=== PATIENT | female | born 1930 | race Caucasian/White ===

== ENCOUNTER 2016-12-01 19:15 | Emergency (ER) | payer MEDICARE ==
[~2016-12-01] VITALS: Ht 162.6 cm; Wt 70.5 kg
[~2016-12-01 19:15] MED LIST: ACET325S8 PO; ANTI12.5 PO; CERTTAB2; CORTIS10A AS; CYAN1LOZ SL; DONE10TA14 PO; FLUO10CA4; MECL12.574 PO; MECL25 PO; NAME10TA PO; RISP1TAB2 PO; ZITH250T PO
[2016-12-01] MEDS ORDERED: SODIUM CHLORIDE 0.9% FLUSH 5 ML FLUSH IVF PRN (19:30)
[2016-12-01] MEDS ORDERED: SODIUM CHLORID 0.9% 500 ML INJ 500 ML IV ONE (19:30)
[2016-12-01 19:31] VITALS: BP 164/56; PULSE 83; RESP 18; TEMP 97.7; O2SAT 97
--- NOTE | 2016-12-01 19:40 | RADHPO ---
EXAM DATE/TIME: 12/01/2016 19:35 [facility] COMPARISON: CHEST SINGLE AP, September 21, 2013, 12:40. INDICATIONS : Weakness, syncopal episode today MEDICAL HISTORY : Unobtainable SURGICAL HISTORY : Unobtainable ENCOUNTER: Initial ACUITY: 1 day PAIN SCORE: Non-responsive. LOCATION: Bilateral chest FINDINGS: A single view of the chest demonstrates the lungs to be symmetrically aerated without evidence of mas s, infiltrate or effusion. The cardiomediastinal contours are unremarkable. Osseous structures are intact. CONCLUSION: No acute disease. Gael Shukla MD on December 01, 2016 at 19:39 Board Certified Radiologist. This report was verified electronically.
[2016-12-01] MEDS ORDERED: VITA500T49 PO (19:48)
[2016-12-01] MEDS ORDERED: FLUO10CA5 PO (19:48)
[2016-12-01] MEDS ORDERED: CERTTAB2 PO (19:48)
[2016-12-01] MEDS ORDERED: DONE10TA7 PO (19:48)
[2016-12-01] MEDS ORDERED: MEMA1TAB2 PO (19:48)
[2016-12-01] MEDS ORDERED: RISP1TAB2 PO (19:48)
[2016-12-01] MEDS ORDERED: KETO1DRO3 EACH EYE (19:48)
[2016-12-01] MEDS ORDERED: AMMO12CR4 TOP (19:48)
--- NOTE | 2016-12-01 19:52 | PD ---
HPI Chief Complaint: General Weakness Time Seen by Provider: 19:27 Travel History International Travel<30 days: No Contact w/Intl Traveler<30days: No Traveled to known affect area: No History of Present Illness HPI Patient is an 85-year-old female with history of dementia who presents to emergency room with complaints of generalized weakness as per [facility] staff. [facility] staff sent patient to the emergency room for evaluation as they reported the patient was sleeping all day and stayed in bed which is unusual for her. Patient is presently demented at bedside, she is alert to person, reports that she feels fine, reports that she has absolutely no complaints. Patient reports that she is not sure why she is in the emergency room at this time. Patient denies any headache or dizziness, denies chest pain or shortness of breath. Patient denies cough, congestion, abdominal pain, nausea or vomiting. Patient with no complaints at this time. PFSH Past Medical History Cardiovascular Problems: Yes COPD: Yes Dementia: Yes Hypertension: Yes Respiratory: Yes ?: Not Past Surgical History Eye Surgery: Yes Social History Alcohol Use: No Tobacco Use: No Substance Use: No Allergies-Medications (Allergen,Severity, Reaction): Coded Allergies: No Known Allergies (Unverified , 12/01/16) Reported Meds & Prescriptions Reported Meds & Active Scripts Active Reported Vitamin B12 (Cyanocobalamin) 500 Mcg Tab 1,000 Mcg PO DAILY Thera Tears Allergy Eye Opth Drops (Ketotifen Opth Drops) 0.025% Drops 1 Drop EACH EYE DAILY PRN Risperidone 1 Mg Tab 1 Mg PO DAILY Memantine 10 Mg Tab 10 Mg PO BID Fluoxetine (Fluoxetine HCl) 10 Mg Cap 10 Mg PO DAILY Donepezil 10 Mg Tab 10 Mg PO HS Certavite/Antioxidants (Multiple Vitamins W/ Minerals) 1 Tab Tab 1 Tab PO DAILY Ammonium Lactate (Lactic Acid) 12 % Cre 1 Applic TOP TID APPLY TO: Review of Systems General / Constitutional: No: Fever Eyes: No: Visual changes HENT: No: Headaches Cardiovascular: No: Chest Pain or Discomfort Respiratory: No: Shortness of Breath Gastrointestinal: No: Abdominal Pain Genitourinary: No: Dysuria Musculoskeletal: No: Pain Skin: No Rash Neurologic: No: Weakness Psychiatric: No: Depression Endocrine: No: Polydipsia Hematologic/Lymphatic: No: Easy Bruising Physical Exam Narrative GENERAL: No acute distress, nontoxic SKIN: Warm and dry. HEAD: Atraumatic. Normocephalic. EYES: Pupils equal and round. No scleral icterus. No injection or drainage. ENT: No nasal bleeding or discharge. Mucous membranes pink and moist. NECK: Trachea midline. No JVD. CARDIOVASCULAR: Regular rate and rhythm. No murmur appreciated. RESPIRATORY: No accessory muscle use. Clear to auscultation. Breath sounds equal bilaterally. GASTROINTESTINAL: Abdomen soft, non-tender, nondistended. Hepatic and splenic margins not palpable. MUSCULOSKELETAL: No obvious deformities. No clubbing. No cyanosis. No edema. NEUROLOGICAL: Awake and alert to person only. No obvious cranial nerve deficits. Motor grossly within normal limits. Normal speech. PSYCHIATRIC: Appropriate mood and affect; patient pleasantly demented Data Data Last Documented VS Vital Signs Date Time Temp Pulse Resp B/P Pulse Ox O2 Delivery O2 Flow Rate FiO2 12/01/16 20:24 82 18 154/67 96 Room Air 12/01/16 19:31 97.7 Orders Complete Blood Count With Diff (12/01/16 19:27) Comprehensive Metabolic Panel (12/01/16 19:27) Prothrombin Time / Inr (Pt) (12/01/16 19:27) Act Partial Throm Time (Ptt) (12/01/16 19:27) Urinalysis - C+S If Indicated (12/01/16 19:27) Iv Access Insert/Monitor (12/01/16 19:27) Ecg Monitoring (12/01/16 19:27) Sodium Chloride 0.9% Flush (Ns Flush) (12/01/16 19:30) Electrocardiogram (12/01/16 19:27) Chest, Single Ap (12/01/16 19:27) Sodium Chlorid 0.9% 500 Ml Inj (Ns 500 M (12/01/16 19:30) Labs Laboratory Tests Test 12/01/16 12/01/16 20:05 20:35 White Blood Count 7.0 TH/MM3 Red Blood Count 4.53 MIL/MM3 Hemoglobin 12.8 GM/DL Hematocrit 38.7 % Mean Corpuscular Volume 85.4 FL Mean Corpuscular Hemoglobin 28.2 PG Mean Corpuscular Hemoglobin 33.0 % Concent Red Cell Distribution Width 12.7 % Platelet Count 254 TH/MM3 Mean Platelet Volume 8.0 FL Neutrophils (%) (Auto) 72.5 % Lymphocytes (%) (Auto) 17.1 % Monocytes (%) (Auto) 7.6 % Eosinophils (%) (Auto) 1.9 % Basophils (%) (Auto) 0.9 % Neutrophils # (Auto) 5.1 TH/MM3 Lymphocytes # (Auto) 1.2 TH/MM3 Monocytes # (Auto) 0.5 TH/MM3 Eosinophils # (Auto) 0.1 TH/MM3 Basophils # (Auto) 0.1 TH/MM3 CBC Comment DIFF FINAL Differential Comment Sodium Level 144 MEQ/L Potassium Level 3.8 MEQ/L Chloride Level 107 MEQ/L Carbon Dioxide Level 31.3 MEQ/L Anion Gap 6 MEQ/L Blood Urea Nitrogen 11 MG/DL Creatinine 0.85 MG/DL Estimat Glomerular Filtration 64 ML/MIN Rate Random Glucose 114 MG/DL Calcium Level 8.7 MG/DL Total Bilirubin 0.2 MG/DL Aspartate Amino Transf 15 U/L (AST/SGOT) Alanine Aminotransferase 25 U/L (ALT/SGPT) Alkaline Phosphatase 91 U/L Total Protein 6.3 GM/DL Albumin 3.1 GM/DL Urine Color YELLOW Urine Turbidity CLEAR Urine pH 7.0 Urine Specific [place] 1.011 Urine Protein NEG mg/dL Urine Glucose (UA) NEG mg/dL Urine Ketones NEG mg/dL Urine Occult Blood NEG Urine Nitrite NEG Urine Bilirubin NEG Urine Leukocyte Esterase NEG Urine RBC 0-3 /hpf Urine WBC 0-2 /hpf Urine Squamous Epithelial 0-5 /hpf Cells Microscopic Urinalysis Comment CULT NOT INDICATED MDM Medical Decision Making Medical Screen Exam Complete: Yes Emergency Medical Condition: Yes Interpretation(s) EKG at 1943: Normal sinus rhythm at 71 bpm, QT/QTc is 378/397, no acute ST or T- wave changes Vital Signs Date Time Temp Pulse Resp B/P Pulse Ox O2 Delivery O2 Flow Rate FiO2 12/01/16 19:31 97.7 83 18 164/56 97 Differential Diagnosis UTI, ACS, electrolyte abnormality, dehydration, infection, dementia Narrative Course Patient is an 85-year-old female with history of dementia who presents to emergency room from [facility] for evaluation of generalized weakness. Patient is alert to person while in the emergency room, patient is pleasantly demented with no complaints. On exam, patient has a benign neurological exam, there is no obvious weakness on her physical exam. Vital signs are stable, plan to obtain labs as well as x-ray of chest and urinalysis. We'll give 500 mg of IV fluids. Plan to monitor patient. Vital Signs Date Time Temp Pulse Resp B/P Pulse Ox O2 Delivery O2 Flow Rate FiO2 12/01/16 20:24 82 18 154/67 96 Room Air 12/01/16 19:51 83 18 97 Room Air 12/01/16 19:31 97.7 83 18 164/56 97 VS stable while in the ER CBC & BMP Diagram 12/01/16 20:05 labs unremarkable UA with no signs of infection, neg leuk esteraste and neg for nitrites Last Impressions Chest X-Ray 12/01/[id number] Signed Impressions: Service Date/Time: Thursday, December 01, 2016 19:35 - CONCLUSION: No acute disease. Gael Shukla MD Patient is well-appearing, smiling and talking at bedside, patient does have baseline dementia. Patient does not appear lethargic while in the emergency room, plan to send her back to the [facility] with instructions to follow-up with her primary care doctor. Patient currently is medically stable for discharge Diagnosis Primary Impression: General weakness Patient Instructions: General Instructions Additional Instructions: Please follow-up with your primary care doctor in 1-2 days Return to emergency room if symptoms return or worsen or progress Return to the emergency room as needed Disposition: 01 DISCHARGE HOME Condition: Stable Yvette Roberts DO Dec 01, 2016 19:52
[2016-12-01 20:20] LABS: AUTOMATED NEUTROPHIL # 5.1 TH/MM3 (1.8-7.7); BASOPHIL # 0.1 TH/MM3 (0-0.2); BASOPHIL % 0.9 % (0.0-2.0); EOSINOPHIL # 0.1 TH/MM3 (0-0.4); EOSINOPHIL % 1.9 % (0.0-4.0); HEMATOCRIT 38.7 % (35.0-46.0); HEMO FLAGS DIFF FINAL; LYMPH % 17.1 % (9.0-44.0); LYMPHOCYTE # 1.2 TH/MM3 (1.0-4.8); MEAN CELL VOLUME 85.4 FL (80.0-100.0); MEAN CORPUSCULAR HEMOGLOBIN 28.2 PG (27.0-34.0); MONO % 7.6 % (0.0-8.0); NEUT % 72.5 % (16.0-70.0); PLATELET COUNT 254 TH/MM3 (150-450); RED BLOOD COUNT 4.53 MIL/MM3 (4.00-5.30); RED CELL DISTRIBUTION WIDTH 12.7 % (11.6-17.2)
[2016-12-01 20:24] VITALS: BP 154/67; PULSE 82; RESP 18; O2SAT 96
[2016-12-01 20:41] LABS: CHLORIDE 107 MEQ/L (98-107); POTASSIUM 3.8 MEQ/L (3.5-5.1); SODIUM (NA) 144 MEQ/L (136-145)
[2016-12-01 20:45] LABS: ANION GAP 6 MEQ/L (5-15); BICARBONATE 31.3 MEQ/L (21.0-32.0); BLOOD UREA NITROGEN 11 MG/DL (7-18)
[2016-12-01 20:46] LABS: BLOOD, URINE NEG (NEG); GLUCOSE,URINE NEG (NEG); KETONE, URINE NEG (NEG); NITRITE,URINE NEG (NEG)
[2016-12-01 20:48] LABS: ALT (GPT) 25 U/L (10-53); AST (GOT) 15 U/L (15-37); GLOMERULAR FILTRATION RATE 64 ML/MIN (>89)
[2016-12-01 20:48] LABS: URINE COLOR YELLOW (YELLW/STRAW)
[2016-12-01 20:49] LABS: TOTAL BILIRUBIN ADULT 0.2 MG/DL (0.2-1.0)
[2016-12-01 20:51] LABS: WBC, URINE 0-2 /hpf (0-5)
[2016-12-01 20:51] LABS: ALKALINE PHOSPHATASE 91 U/L (45-117)
[2016-12-01 20:52] LABS: COMMENT (UR) CULT NOT INDICATED; CULTURE IF INDICATED CULT NOT INDICATED; RBC, URINE 0-3 /hpf (0-3); SQUAMOUS EPITHELIAL CELL URINE 0-5 /hpf (0-5)
[2016-12-01 21:24] VITALS: PULSE 75; RESP 18; O2SAT 96
--- NOTE | 2016-12-02 13:57 | EKG ---
Date Performed: 12/01/2016 Time Performed: 19:43:58 PTAGE: 85 years EKG: Sinus rhythm Indeterminate axis Borderline ECG PREVIOUS TRACING : 12/03/2013 09.44 DOCTOR: Roman Atkins Interpretating Date/Time 12/02/2016 13:52:09
== END 2016-12-01 22:24 | disposition home or self-care (01) ==
LOC: PHED 19:15
DX: R53.1 Weakness (principal); F03.90 Unspecified dementia, unspecified severity, without behavioral disturbance, psychotic disturbance, mood disturbance, and anxiety; I10 Essential (primary) hypertension; R94.31 Abnormal electrocardiogram [ECG] [EKG]; J44.9 Chronic obstructive pulmonary disease, unspecified
CPT/HCPCS: 71010; 80053; 81001; 85025; 93005; 96360; 99285; J7040; 85610; 85730